=== PATIENT | female | born 1965 | race African-American/Black ===

== ENCOUNTER → 2019-01-12 | Outpatient (CLI) | payer BC ==
[~2019-01-12] MED LIST: ATRIPLA PO; BACTRIM 400 MG-1 TAB PO; BACTRIM DS 8001 TAB PO; EYE DROPS; HCTZ; HCTZ 25MG TAB25 MG PO; ISENTRESS400 MG PO; MEPRON PO; NORVASC 10MG10 MG PO; PRINIVIL20 MG PO; TRUVADA PO; ZITHROMAX 250M250 MG PO; ZYRTEC 10MG10 MG PO
== END ==
LOC: MC.RAD 14:27
DX: Z12.31 Encounter for screening mammogram for malignant neoplasm of breast (principal)

== ENCOUNTER → 2019-04-20 | Outpatient (CLI) | payer BC, MEDICAID ==
[2019-04-20 11:45] LABS: BASO % 0.4 % (0.0-2.0); EOS # 0.1 (0.0-0.7); EOS % 1.8 % (0-4.0); GRAN # 1.9 (1.4-6.5); GRAN % 36.9 % (42.2-75.2); HEMATOCRIT 38.5 % (37.0-47.0); HEMOGLOBIN 11.9 g/dl (12.5-16.0); LYMPH # 2.6 (1.2-3.4); LYMPH % 51.5 % (20.0-51.0); MEAN CELL VOLUME 95 fl (80.0-100.0); MEAN CORPUSCULAR HEMOGLOBIN 29 pg (27.0-31.0); MEAN CORPUSCULAR HGB CONC 31 g/dl (33.0-37.0); MEAN PLATELET VOLUME 11.2 fl (7.4-10.4); MONO # 0.5 (0.1-0.6); PLATELET COUNT 272 K/mm3 (130-400); RED BLOOD COUNT 4.05 M/mm3 (4.10-5.30)
[2019-04-20 11:56] LABS: ALBUMIN 4.3 gm/dL (3.5-5.0); CALCIUM 9.3 mg/dL (8.4-10.2); CREATININE, serum 0.99 (0.52-1.25); POTASSIUM 3.7 mmol/L (3.4-5.0); TOTAL PROTEIN 8.5 gm/dL (6.4-8.2)
[2019-04-21 08:58] LABS: T HELPER (CD4) INDUCER CELLS 15.2 % (29.0-59.0)
== END ==
LOC: COL.PUL 09:55
PROVIDERS: Internal Medicine Pulmonary Disease
DX: Z01.812 Encounter for preprocedural laboratory examination (principal); B20 Human immunodeficiency virus [HIV] disease; R06.02 Shortness of breath; R59.1 Generalized enlarged lymph nodes; K44.9 Diaphragmatic hernia without obstruction or gangrene
CPT/HCPCS: Q9967

== ENCOUNTER → 2019-05-22 | Outpatient (CLI) | payer BC, MEDICAID | LOC: COL.RAD 08:28 | DX: R59.0 Localized enlarged lymph nodes (principal) ==

== ENCOUNTER 2020-09-06 12:28 | Day surgery (SDC) | payer BC, MEDICAID ==
[~2020-09-06] VITALS: Ht 167.6 cm; Wt 108.0 kg
[2020-09-06] VITALS (9 sets, daily range): BP systolic 117–169; BP diastolic 66–91; PULSE 57–73; TEMP 98.2
[2020-09-06] MEDS ORDERED: LASIX 40MG TABL40 MG PO (12:44)
[2020-09-06] MEDS ORDERED: COREG12.5 MG PO (12:45)
[2020-09-06] MEDS ORDERED: BIKTARVY 50-201 EACH PO (12:46)
[2020-09-06 13:11] LABS: HEMATOCRIT 37.3 % (37.0-47.0); HEMOGLOBIN 11.7 g/dl (12.5-16.0); MEAN CELL VOLUME 96 fl (80.0-100.0); MEAN CORPUSCULAR HEMOGLOBIN 30 pg (27.0-31.0); MEAN CORPUSCULAR HGB CONC 31 g/dl (33.0-37.0); MEAN PLATELET VOLUME 11.2 fl (7.4-10.4); PLATELET COUNT 269 K/mm3 (130-400); REDCELL DISTRIBUTION WIDTH-CV 12.9 % (11.5-14.5)
[2020-09-06 13:24] LABS: CALCIUM 9.6 mg/dL (8.4-10.2); CREATININE, serum 1.03 (0.52-1.25)
[2020-09-06 13:32] LABS: INR 1.3 (0.8-3.0); PROTHROMBIN TIME 14.4 SECONDS (9.7-12.8)
[2020-09-06 13:35] LABS: PARTIAL THROMBOPLASTIN TIME 31.2 SECONDS (26.0-37.0)
--- NOTE | 2020-09-06 14:54 | NUR ---
SEE MERGE DOCUMENTATION FOR MEDICATION ADMINISTRATION AND INTRA/POST PROCEDURE SEDATION ASSESSMENTS.
--- NOTE | 2020-09-06 15:45 | NUR ---
PT BACK FROM [facility], REPORT FROM GRACIELA RAZO. PT IS IN NO DISTRESS, SHE IS [employer] 15, PWD, NSR ON MONITOR. CMS INTACT TO RT UPPER EXTREM. TR BAND IN PLACE WITH 17 IN BAND. CALL LIGHT IN REACH. DINNER ORDERED.
--- NOTE | 2020-09-06 18:06 | NUR ---
PT DOING WELL DURING HER RECOVERY, PT RESTING COMFORTABLY TALKING ON CELL PHONE. RT RADIAL SITE LOOKS GOOD, IN PROCESS NOW OF DEFLATING TR BAND. WE HAVE REVIEWED DC INSTRUCTIONS R/T HEART CATH AND MODERATE SEDATION. PT VERBALIZED UNDERSTANDING. RECEIPT OF DISCHARGE INSTRUCTIONS FROM DR. ONEIL IS PENDING.
--- NOTE | 2020-09-06 19:09 | NUR ---
TR BAND DEFLATED WITH NO PROBLEM, SITE DRESSED WITH BANDAID, FOLDED 2X2 AND COBAN, CMS INTACT DISTAL. NO BLEEDING OR HEMATOMA. IV DC'D WITH CATH INTACT. DISCHARGE AND FU INSTRUCTIONS PROVIDED AND REVIEWED. PT TO EXIT VIA WHEELCHAIR.
== END 2020-09-06 19:12 | disposition home or self-care (01) ==
LOC: COL.CAR 12:28
PROVIDERS: Internal Medicine Cardiovascular Disease
DX: I25.10 Atherosclerotic heart disease of native coronary artery without angina pectoris (principal); I10 Essential (primary) hypertension; I11.0 Hypertensive heart disease with heart failure; I50.20 Unspecified systolic (congestive) heart failure; E78.5 Hyperlipidemia, unspecified; B20 Human immunodeficiency virus [HIV] disease; Z86.711 Personal history of pulmonary embolism; Z88.1 Allergy status to other antibiotic agents; Z88.2 Allergy status to sulfonamides; Z88.8 Allergy status to other drugs, medicaments and biological substances
CPT/HCPCS: J1644; J2250; J3010; J7030